=== PATIENT | male | born 1950 | race Caucasian/White ===

== ENCOUNTER → 2018-07-05 08:27 | Outpatient (CLI) | payer MEDICARE, OTHER, SELFPAY | PROVIDERS: PCP Internal Medicine; Visit Provider Internal Medicine | DX: Z53.9 Procedure and treatment not carried out, unspecified reason (principal) ==

== ENCOUNTER → 2018-09-04 15:06 | Outpatient (CLI) | payer MEDICARE, OTHER, SELFPAY ==
--- NOTE | 2018-09-04 15:08 | DI.US.S_ITS ---
PROCEDURE: US PERIPH VENOUS LOW EXTREM RT INDICATIONS: Swelling and bruising right lateral thigh TECHNIQUE: Real-time imaging, as well as color and pulse Doppler interrogation, were performed of the lower extremity deep veins from the inguinal ligament to the popliteal fossa. COMPARISON: None. FINDINGS: The deep veins are normally compressible, and free of intraluminal thrombus. Color and pulse Doppler demonstrate normal phasic intraluminal flow. There is normal augmentation response to distal compression maneuver. IMPRESSION: Negative for deep venous thrombosis. Dictated by: Surya Arroyo M.D. on 09/04/2018 at 15:25 Approved by: Surya Arroyo M.D. on 09/04/2018 at 15:26
== END ==
PROVIDERS: PCP Internal Medicine; Visit Provider Physician Assistant
DX: S70.11XA Contusion of right thigh, initial encounter (principal); M79.89 Other specified soft tissue disorders
CPT/HCPCS: 93971

== ENCOUNTER → 2018-09-09 16:12 | Outpatient (CLI) | payer MEDICARE, OTHER, SELFPAY ==
[2018-09-09 16:38] LABS: Add Manual Diff / Slide Review NO; Basophils Percent Auto 0.3 % (0-2); Eosinophils Percent Auto 1.5 % (2-4); Hematocrit 41.2 % (41-53); Hemoglobin 13.8 g/dL (13.5-17.5); Mean Corpuscular HGB Conc 33.4 % (30-36); Mean Corpuscular Hemoglobin 30.1 PG (26-34); Mean Corpuscular Volume 90.1 fL (80-100); Monocytes Percent Auto 6.9 % (3-14); Neutrophils Absolute Auto 6100 /uL (3000-5900); Neutrophils Percent Auto 68.3 % (50-75); Platelet Count 196 X10^3/uL (150-400); Red Blood Cell Count 4.58 X10^6/uL (4.5-5.9); White Blood Cell Count 8.9 X10^3/uL (4.5-11.0)
[2018-09-09 16:49] LABS: Hemoglobin A1C% w Est Avg Glu 7.1 % (4.0-6.0)
[2018-09-09 17:07] LABS: Alanine Aminotransferase 48 IU/L (21-72); Albumin 4.5 g/dL (3.5-5.0); Albumin Globulin Ratio 1.7 (1.0-2.8); Alkaline Phosphatase 107 U/L (38-126); Aspartate Aminotransferase 41 IU/L (17-59); BUN Creatinine Ratio 18.5 (6-22); Blood Urea Nitrogen 24 mg/dL (9-20); Calcium 9.6 mg/dL (8.4-10.2); Carbon Dioxide 24 mmol/L (22-32); Chloride 103 mmol/L (98-107); Estimated Glomerular Filt Rate 55.2 mL/min (>60); Globulin 2.6 g/dL (1.7-4.1); Glucose 173 mg/dL (80-110); HEMOLYSIS < 15 (0-50); Potassium 4.6 mmol/L (3.4-5.1); Sodium 143 mmol/L (137-145); Total Protein 7.1 g/dL (6.3-8.2)
== END ==
PROVIDERS: PCP Internal Medicine; Visit Provider Internal Medicine
DX: E11.65 Type 2 diabetes mellitus with hyperglycemia (principal); E78.2 Mixed hyperlipidemia; Z79.01 Long term (current) use of anticoagulants; Z95.2 Presence of prosthetic heart valve
CPT/HCPCS: 36415; 80053; 83036; 85025

== ENCOUNTER 2018-10-29 16:08 | Emergency (ER) | payer MEDICARE, OTHER, SELFPAY ==
--- NOTE | 2018-10-29 16:11 | ED_ITS ---
HPI - Male Genitourinary <JADEN Montes - Last Filed: 10/29/18 21:27> General Chief complaint: Urogenital-Male Stated complaint: DIFFICULTY URINATING Time Seen by Provider: 10/29/18 16:08 Source: patient Mode of arrival: ambulatory Limitations: no limitations History of Present Illness HPI Narrative: 68-year-old male with history of coronary artery disease and type 2 diabetes the is a former smoker here for complaint of having increased urinary frequency that started last night. He also has a sensation that he is having difficulty in urination. He denies any flank pain. No fevers or chills. No suprapubic pain. He denies any hematuria no nausea vomiting. Positive p.o. intake he states he is tolerating fluids. He denies any abdominal pain. No rectal pain. No other concerns or complaints at this timeframe. Related Data Home Medications Medication Instructions Recorded Confirmed aspirin 81 mg PO QDAY #0 08/23/09 09/09/18 CA PANTOTHENATE/FOLIC ACID/VIT 1 tab PO QDAY #0 03/20/13 09/09/18 (MULTIVITAMIN) [osteo bi flex] #0 11/23/16 09/09/18 Previous Rx's Medication Instructions Recorded oxybutynin chloride 5 mg PO QDAY #90 tab 12/10/17 warfarin 2.5 mg tablet 2.5 mg PO SEE INSTRUCTIONS #180 tab 05/07/18 atorvastatin 80 mg tablet 80 mg PO HS #90 tab 09/09/18 metformin 1,000 mg tablet 1,000 mg PO BIDCC #90 tab 09/09/18 metoprolol succinate ER 50 mg 50 mg PO BID #180 ter 09/09/18 tablet,extended release 24 hr glipizide 10 mg tablet 10 mg PO BID #180 tab 10/02/18 sitagliptin 100 mg tablet 100 mg PO QDAY #90 tab 10/02/18 nitrofurantoin monohyd/m-cryst 100 mg PO BID #13 cap 10/29/18 [Macrobid] Allergies Allergy/AdvReac Type Severity Reaction Status Date / Time Penicillins [PENICILLINS] Allergy Mild REACTION Verified 09/09/18 15:46 WHEN HE WAS A CHILD furosemide [From LASIX] Allergy Unknown Verified 09/09/18 15:46 Review of Systems <JADEN Montes - Last Filed: 10/29/18 21:27> Constitutional Denies chills, Denies fever(s), Denies lethargy and Denies weakness Eyes Denies change in vision, Denies eye discharge, Denies irritation and Denies loss of vision ENT Ears, Nose, Mouth, and Throat: Denies change in voice, Denies neck pain and Denies sore throat Cardiovascular Denies chest pain, Denies irregular heart rhythm, Denies lightheadedness, Denies palpitations, Denies dyspnea, Denies dyspnea on exertion and Denies orthopnea Respiratory Denies cough, Denies dyspnea, Denies dyspnea on exertion and Denies wheezing Gastrointestinal Gastrointestinal: Denies abdominal pain, Denies change in bowel habits, Denies diarrhea, Denies nausea and Denies vomiting Genitourinary Comments: Increased urinary frequency and sensation of difficulty urinating Musculoskeletal Denies neck pain Integumentary/Breasts Denies pruritus, Denies erythema, Denies rash and Denies wounds Neurologic Denies confusion, Denies loss of vision and Denies weakness Psychiatric Denies anxiety, Denies confusion, Denies depression, Denies homicidal ideation and Denies suicidal ideation Endocrine Denies palpitations Hematologic/Lymphatic Denies easy bruising Allergic/Immunologic Denies wheezing Exam <John Joshua [facility] - Last Filed: 10/29/18 21:27> Initial Vital Signs Initial Vital Signs: Vital Signs Temperature 97.8 F 10/29/18 16:14 Pulse Rate 78 10/29/18 16:14 Respiratory Rate 16 10/29/18 16:14 Blood Pressure 169/96 H 10/29/18 16:14 Pulse Oximetry 99 10/29/18 16:14 Const General: cooperative and well developed Nutritional Appearance: well nourished Orientation: alert, awake, oriented x3 and not confused [facility] Mouth: oral mucosae normal and moist mucous membranes Eyes Conjunctivae: conjunctivae normal Sclera: sclerae normal Pupils: PERRL EOM: EOM intact bilaterally Resp Effort & Inspection: normal respiratory effort, able to speak in complete sentences, no respiratory distress and no use of accessory muscles Auscultation: clear to auscultation bilaterally, no rales, no rhonchi and no wheezes Cardio Rate: regular rate Rhythm: regular rhythm Heart Sounds: no click, no gallops, no murmurs and no rubs GI Inspection: non-distended Palpation: soft, no hepatosplenomegaly, No guarding, No pulsatile mass and No tender Auscultation: normal bowel sounds General: No CVA tenderness Skin General: no rashes or lesions noted, No jaundice and No petechiae Neuro General: alert, oriented x3, gait normal and no focal motor deficits Speech: speech normal <Melany Churchill DO - Last Filed: 11/01/18 19:49> Initial Vital Signs Initial Vital Signs: Vital Signs Temperature 97.8 F 10/29/18 16:14 Pulse Rate 78 10/29/18 16:14 Respiratory Rate 16 10/29/18 16:14 Blood Pressure 169/96 H 10/29/18 16:14 Pulse Oximetry 99 10/29/18 16:14 Course <JADEN Montes - Last Filed: 10/29/18 21:27> Orders Ordered: Discontinued Medications Nitrofurantoin Macrocrystals (Macrobid 100 Mg Capsule) 100 mg PO NOW ONE Stop: 10/29/18 17:01 Last Admin: 10/29/18 17:10 Dose: 100 mg Vital Signs - 8 hr 10/29/18 16:14 Temperature 97.8 F Pulse Rate 78 Respiratory Rate 16 Blood Pressure 169/96 H Pulse Oximetry 99 <Melany Churchill DO - Last Filed: 11/01/18 19:49> Orders Ordered: Discontinued Medications Nitrofurantoin Macrocrystals (Macrobid 100 Mg Capsule) 100 mg PO NOW ONE Stop: 10/29/18 17:01 Last Admin: 10/29/18 17:10 Dose: 100 mg Vital Signs - 8 hr 10/29/18 16:14 Temperature 97.8 F Pulse Rate 78 Respiratory Rate 16 Blood Pressure 169/96 H Pulse Oximetry 99 MDM - Male Genitourinary <JADEN Montes - Last Filed: 10/29/18 21:27> Lab Data Lab Results 10/29/18 Range/Units 16:25 Urine RBC >100/hpf (0-5/HPF) Urine WBC >100/hpf H (0-5/HPF) Ur Squamous Epith Cells 1-5 /hpf Urine Bacteria Many (>30) H (None) Ur Culture Indicated? Specimen cultured MDM Narrative Medical decision making narrative: Bladder scan indicated 15 mL of urine in the bladder. Urinalysis indicates urinary tract infection. He is treated for urinary tract infection with Macrobid. Culture and sensitivity is pending. Plenty of fluids. Follow up with primary care provider next few days for re- evaluation. For any worsening symptoms return to the emergency room. <Melany C Kerline, DO - Last Filed: 11/01/18 19:49> Lab Data Lab Results 10/29/18 Range/Units 16:25 Urine RBC >100/hpf (0-5/HPF) Urine WBC >100/hpf H (0-5/HPF) Ur Squamous Epith Cells 1-5 /hpf Urine Bacteria Many (>30) H (None) Ur Culture Indicated? Specimen cultured Discharge Plan Departure Patient Disposition: Home Clinical Impression: Urinary tract infection Discharge Date/Time: 10/29/18 17:05 Interventions: ED Discharge Assessment Last Done: 10/29/18 17:18 Instructions: DI for Urinary Tract Infection (UTI) Activity Restrictions/Additional Instructions: Bladder scan shows 15 mL inside her urine indicating that you are not retaining urine. Urinalysis indicates urinary tract infection. You have been placed on antibiotic for treatment use as directed. Plenty of fluids. Follow up with her primary care provider in the next few days for re-evaluation. For any worsening symptoms return to the emergency room. Prescriptions: New nitrofurantoin monohyd/m-cryst [Macrobid] 100 mg capsule 100 mg PO BID Qty: 13 RF: 0 No Action aspirin 81 MG tablet,delayed release (DR/EC) 81 mg PO QDAY Qty: 0 RF: 0 CA PANTOTHENATE/FOLIC ACID/VIT (MULTIVITAMIN) 1 tab PO QDAY Qty: 0 RF: 0 [osteo bi flex] Qty: 0 RF: 0 oxybutynin chloride 5 MG tablet 5 mg PO QDAY Qty: 90 RF: 3 warfarin [Coumadin] 2.5 mg tablet 2.5 mg PO SEE INSTRUCTIONS Qty: 180 RF: 3 glipizide 10 mg tablet 10 mg PO BID Qty: 180 RF: 3 sitagliptin [Januvia] 100 mg tablet 100 mg PO QDAY Qty: 90 RF: 3 metformin 1,000 mg tablet 1,000 mg PO BIDCC Qty: 90 RF: 11 atorvastatin [Lipitor] 80 mg tablet 80 mg PO HS Qty: 90 RF: 3 metoprolol succinate 50 mg tablet extended release 24 hr 50 mg PO BID Qty: 180 RF: 3 Referrals: Rajendra Camargo MD [Primary Care Provider] - <Melany Churchill DO - Last Filed: 11/01/18 19:49> Cosign ED Attending Cosignature Attestation: I was immediately available in the department for consultation. This documentation has been reviewed and I agree with assessment and plan. Supervised by Melany Churchill DO
[2018-10-29 16:14] VITALS: BP 169/96; PULSE 78; RESP 16; TEMP 36.6; O2SAT 99
[2018-10-29 16:47] LABS: Bacteria Urine Many (>30); RBC Urine >100/HPF (0-5/HPF); Squamous Epithelial Cell Urine 1-5 /HPF; WBC Urine >100/HPF (0-5/HPF)
[2018-10-29 16:48] LABS: Culture Indicated Urine Specimen Cultured
[2018-10-29] MEDS: NITROFURANTOIN ER 100 MG CAPSULE PO (17:10)
== END 2018-10-29 17:05 | disposition home or self-care (01) ==
PROVIDERS: Emergency Provider Nurse Practitioner Family; Family Provider Internal Medicine; PCP Internal Medicine
DX: N39.0 Urinary tract infection, site not specified (principal)
CPT/HCPCS: 51798; 81015; 87077; 87086; 87186; 99283

== ENCOUNTER → 2018-11-13 16:34 | Outpatient (CLI) | payer MEDICARE, OTHER, SELFPAY ==
[2018-11-13 20:22] LABS: Urine N gonorrhoeae NOT DETECTED
[2018-11-13 20:34] LABS: Urine Chlamydia NOT DETECTED
== END ==
PROVIDERS: Family Provider Internal Medicine; PCP Internal Medicine; Visit Provider Physician Assistant
DX: R52 Pain, unspecified (principal)
CPT/HCPCS: 87491; 87591

== ENCOUNTER 2018-11-13 16:38 | Emergency (ER) | payer MEDICARE, OTHER, SELFPAY ==
[2018-11-13 16:42] VITALS: BP 164/83; PULSE 68; RESP 20; TEMP 37.3; O2SAT 98
--- NOTE | 2018-11-13 17:02 | DI.US.S_ITS ---
PROCEDURE: US SCROTUM INDICATIONS: swelling TECHNIQUE: Real-time scanning was performed of the scrotum and testicles, with image documentation. Color and pulse Doppler interrogation was performed of both testicles. COMPARISON: [facility], US, US PERIPH VENOUS LOW EXTREM RT, 09/04/2018, 16:06. FINDINGS: Right: Testicle is normal in size at 4.9 x 3.3 x 2.9 cm, and homogenous in echotexture. 2 small punctate calcifications are identified within the right testicular parenchyma. Right epididymis is mildly increased vascularity relative to the left. There is a right hydrocele. The right hydrocele is larger than the left, with both demonstrating low level internal echoes. No varicocele. Overlying scrotal skin is normal in thickness. Left: Testicle is normal in size at 4.0 x 2.7 x 3.1 cm, and homogeneous in echotexture. Epididymis is normal in overall size and morphology. There is a left hydrocele. No varicoceles. Overlying scrotal skin is normal in thickness. Doppler: Color and pulse Doppler demonstrate normal and symmetric vascular flow in both testicles. There is mildly increased vascularity of the right epididymis relative to the left. IMPRESSION: 1. Right greater than left bilateral hydroceles. Low level internal echoes within the hydroceles may represent imaging artifact, versus debris from blood, pus, or protein. 2. Mildly increased vascularity of the right epididymis relative to the left, a nonspecific finding that can be seen with right epididymitis. Preliminary findings were discussed by the blocker hand with the referring provider Dr. Vincent Medina at 1725 hrs. on 11/13/18. Dictated by: Taqueria Mesa M.D. on 11/13/2018 at 18:21 Approved by: Taqueria Mesa M.D. on 11/13/2018 at 18:27
--- NOTE | 2018-11-13 17:36 | ED.MALEGU ---
HPI - Male Genitourinary <JADEN Montes - Last Filed: 11/13/18 21:49> General Chief complaint: Urogenital-Male Stated complaint: abdominal pain; swollen scrotum Time Seen by Provider: 11/13/18 17:05 Source: patient Mode of arrival: ambulatory Limitations: no limitations History of Present Illness HPI Narrative: 68-year-old male with history of type 2 diabetes and is a former smoker here for complaint of pain into his right testicle area with some swelling over the past couple of days. He denies any trauma to the area. He denies any penile discharge. He does report that there is some tenderness to that area. Pain radiates up into his right abdomen. He denies any stressors or relievers of his discomfort. He denies any rectal pain. Positive p.o. intake no nausea vomiting. Last bowel movement was earlier today and was unremarkable. He denies any urinary symptoms. He was recently treated for urinary tract infection a week ago he states his symptoms have resolved. He denies any other concerns or complaints at this timeframe. MD Complaint: testicle pain and testicle swelling Related Data Home Medications Medication Instructions Recorded Confirmed aspirin 81 mg PO QDAY #0 08/23/09 11/13/18 CA PANTOTHENATE/FOLIC ACID/VIT 1 tab PO QDAY #0 03/20/13 11/13/18 (MULTIVITAMIN) [osteo bi flex] #0 11/23/16 11/13/18 atorvastatin [Lipitor] 80 mg PO BEDTIME 11/13/18 11/13/18 oxybutynin chloride 5 mg PO DAILY 11/13/18 11/13/18 sitagliptin [Januvia] 100 mg PO DAILY 11/13/18 11/13/18 Previous Rx's Medication Instructions Recorded warfarin 2.5 mg tablet 2.5 mg PO SEE INSTRUCTIONS #180 tab 05/07/18 metformin 1,000 mg tablet 1,000 mg PO BIDCC #90 tab 09/09/18 metoprolol succinate ER 50 mg 50 mg PO BID #180 ter 09/09/18 tablet,extended release 24 hr glipizide 10 mg tablet 10 mg PO BID #180 tab 10/02/18 nitrofurantoin monohyd/m-cryst 100 mg PO BID #13 cap 10/29/18 [Macrobid] levofloxacin 500 mg PO DAILY #9 tab 11/13/18 Allergies Allergy/AdvReac Type Severity Reaction Status Date / Time Penicillins [PENICILLINS] Allergy Mild REACTION Verified 11/13/18 15:37 WHEN HE WAS A CHILD furosemide [From LASIX] Allergy Unknown Verified 11/13/18 15:37 Review of Systems <JADEN Montes - Last Filed: 11/13/18 21:49> Constitutional Denies chills, Denies fever(s), Denies lethargy and Denies weakness Eyes Denies change in vision, Denies eye discharge, Denies irritation and Denies loss of vision ENT Ears, Nose, Mouth, and Throat: Denies change in voice, Denies neck pain and Denies sore throat Cardiovascular Denies chest pain, Denies irregular heart rhythm, Denies lightheadedness, Denies palpitations, Denies dyspnea, Denies dyspnea on exertion and Denies orthopnea Respiratory Denies cough, Denies dyspnea, Denies dyspnea on exertion and Denies wheezing Gastrointestinal Gastrointestinal: Reports abdominal pain Genitourinary Reports testicular pain Comments: Right testicle pain and swelling Musculoskeletal Denies neck pain Integumentary/Breasts Denies pruritus, Denies erythema, Denies rash and Denies wounds Neurologic Denies confusion, Denies loss of vision and Denies weakness Psychiatric Denies anxiety, Denies confusion, Denies depression, Denies homicidal ideation and Denies suicidal ideation Endocrine Denies palpitations Hematologic/Lymphatic Denies easy bruising Allergic/Immunologic Denies wheezing Exam <JADEN Montes - Last Filed: 11/13/18 21:49> Initial Vital Signs Initial Vital Signs: Vital Signs Temperature 99.2 F 11/13/18 16:42 Pulse Rate 68 11/13/18 16:42 Respiratory Rate 20 11/13/18 16:42 Blood Pressure 164/83 H 11/13/18 16:42 Pulse Oximetry 98 11/13/18 16:42 Const General: cooperative and well developed Nutritional Appearance: well nourished Orientation: alert, awake, oriented x3 and not confused HENWA Mouth: oral mucosae normal and moist mucous membranes Eyes Conjunctivae: conjunctivae normal Sclera: sclerae normal Pupils: PERRL EOM: EOM intact bilaterally Resp Effort & Inspection: normal respiratory effort, able to speak in complete sentences, no respiratory distress and no use of accessory muscles Auscultation: clear to auscultation bilaterally, no rales, no rhonchi and no wheezes Cardio Rate: regular rate Rhythm: regular rhythm Heart Sounds: no click, no gallops, no murmurs and no rubs Pulses: normal peripheral pulses GI Inspection: non-distended Palpation: soft, no hepatosplenomegaly, No guarding, No pulsatile mass and tender Auscultation: normal bowel sounds Other: Tenderness on palpation to the right lower quadrant. Testes: epididymal tenderness, testicular swelling and testicular tenderness Other: Slight swelling appreciated to the right testicular area. Also with tenderness. No inguinal hernias appreciated on exam. Skin General: no rashes or lesions noted, No jaundice and No petechiae Neuro General: alert, oriented x3, gait normal and no focal motor deficits Speech: speech normal <Tamie Zuñiga DO - Last Filed: 11/14/18 01:43> Initial Vital Signs Initial Vital Signs: Vital Signs Temperature 99.2 F 11/13/18 16:42 Pulse Rate 68 11/13/18 16:42 Respiratory Rate 20 11/13/18 16:42 Blood Pressure 164/83 H 11/13/18 16:42 Pulse Oximetry 98 11/13/18 16:42 Course <JADEN Montes - Last Filed: 11/13/18 21:49> Orders Ordered: ED Orders 11/13/18 17:02 US scrotum Stat 11/13/18 17:44 CT abdomen pelvis w con Stat 11/13/18 18:35 Complete Blood Count AUTO DIFF Stat Comprehensive Metabolic Panel Stat Lipase Stat Discontinued Medications Levofloxacin (Levaquin) 500 mg PO NOW ONE Stop: 11/13/18 21:48 Last Admin: 11/13/18 21:58 Dose: 500 mg Vital Signs - 8 hr 11/13/18 18:13 11/13/18 20:22 11/13/18 22:05 Pulse Rate 64 67 65 Respiratory Rate 17 16 15 Blood Pressure 134/70 Blood Pressure [Right Arm] 133/72 136/74 Pulse Oximetry 94 97 98 <Tamie Zuñiga DO - Last Filed: 11/14/18 01:43> Orders Ordered: ED Orders 11/13/18 17:02 US scrotum Stat 11/13/18 17:44 CT abdomen pelvis w con Stat 11/13/18 18:35 Complete Blood Count AUTO DIFF Stat Comprehensive Metabolic Panel Stat Lipase Stat Discontinued Medications Levofloxacin (Levaquin) 500 mg PO NOW ONE Stop: 11/13/18 21:48 Last Admin: 11/13/18 21:58 Dose: 500 mg Vital Signs - 8 hr 11/13/18 18:13 11/13/18 20:22 11/13/18 22:05 Pulse Rate 64 67 65 Respiratory Rate 17 16 15 Blood Pressure 134/70 Blood Pressure [Right Arm] 133/72 136/74 Pulse Oximetry 94 97 98 MDM - Male Genitourinary <JADEN Montes - Last Filed: 11/13/18 21:49> Lab Data Result diagrams: 11/13/18 18:35 11/13/18 18:35 Lab Results 11/13/18 11/13/18 Range/Units 18:35 18:35 WBC 13.6 H (4.5-11.0) X10^3/uL RBC 4.57 (4.5-5.9) X10^6/uL Hgb 13.6 (13.5-17.5) g/dL Hct 40.5 L (41-53) % MCV 88.7 (80-100) fL MCH 29.7 (26-34) PG MCHC 33.5 (30-36) % RDW 13.7 (11.6-14.8) % Plt Count 369 (150-400) X10^3/uL Neut % (Auto) 79.2 H (50-75) % Lymph % (Auto) 14.3 L (25-40) % [place] % (Auto) 5.5 (3-14) % Eos % (Auto) 0.7 L (2-4) % Baso % (Auto) 0.3 (0-2) % Neut # (Auto) 38250 H (5513-0867) /uL Lymph # (Auto) 1900 (0761-4477) /uL [place] # (Auto) 800 (0-900) /uL Eos # (Auto) 100 (0-450) /uL Baso # (Auto) 0 (0-100) /uL Sodium 141 (137-145) mmol/L Potassium 4.2 (3.4-5.1) mmol/L Chloride 104 (98-107) mmol/L Carbon Dioxide 25 (22-32) mmol/L BUN 20 (9-20) mg/dL Creatinine 1.20 (0.66-1.25) mg/dL Estimated GFR > 60.0 (>60) mL/min BUN/Creatinine Ratio 16.7 (6-22) Glucose 95 (80-110) mg/dL Calcium 10.0 (8.4-10.2) mg/dL Total Bilirubin 0.7 (0.2-1.3) mg/dL AST 43 (17-59) IU/L ALT 48 (21-72) IU/L Alkaline Phosphatase 118 (38-126) U/L Total Protein 8.5 H (6.3-8.2) g/dL Albumin 4.5 (3.5-5.0) g/dL Globulin 4.0 (1.7-4.1) g/dL Albumin/Globulin Ratio 1.1 (1.0-2.8) Lipase 150 (23-300) U/L Imaging Data CT scan - abdomen: Radiologist's impression: [address] [place] [id number] Scan Report Signed Patient: Al Butts MR#: [id number] : 1950 Acct:[id number] Age/Sex: 68 / M Date of Service: 11/13/18 Loc: ED Accession Number: [id number] Procedure: CT abdomen pelvis w con Ordering Provider: John Joshua PROCEDURE: CT ABDOMEN PELVIS W CON INDICATIONS: Pain to right lower quadrant radiating into right testicle. Patient states history of open repair of abdominal aortic aneurysm and open heart surgery. TECHNIQUE: After the administration of intravenous contrast, 5 mm thick sections acquired from the diaphragm to the symphysis. 5 mm coronal and sagittal reformats were acquired. For radiation dose reduction, the following was used: automated exposure control, adjustment of mA and/or kV according to patient size. COMPARISON: [facility], US, US SCROTUM, 11/13/2018, 17:17. [facility], CT, KIDNEY/ URETER/BLADDER, 09/13/2015, 10:05. [facility], CT, KIDNEY/ URETER/BLADDER, 09/10/2009, 8:38. [facility], CT, KIDNEY/ URETER/BLADDER, 08/20/2009, 14:44. [facility], CT, KIDNEY/ URETER/BLADDER, 06/24/2008, 11:09. FINDINGS: Image quality: Excellent. ABDOMEN: Lung bases: Lung bases are clear. Heart size is normal. Solid organs: 1.6 cm hypoattenuating lesion in the anterior right hepatic lobe on axial image 29 of series 2 is stable in appearance to comparison exam of 09/13/15, and may represent hepatic cyst, hemangioma, or area of focal fatty infiltration. Gallbladder is unremarkable. Biliary system is non dilated. Pancreas enhances normally. There is a 0.5 cm hypoattenuated focus within the spleen is stable appearance to prior comparison exam of , and may represent a cyst or hemangioma. Spleen is otherwise normal in size and enhancement. There is a stable 1.0 cm nodule in the lateral limb of the left adrenal gland, currently measuring 1.0 cm in size and previously measuring 1.0 cm on 09/13/15. No hydronephrosis. There are bilateral renal cysts. The left kidney is smaller than the right, demonstrates cortical thinning, and multiple cortical defects suggestive of chronic renal disease/prior renal insult. There is mild bilateral perinephric fat stranding. There is nonobstructing nephrolithiasis with the largest nephrolith measuring 0.4 cm in the superior pole of the left kidney. There is mild hyperemia of the left renal collecting system and ureter. Peritoneum and bowel: Bowel loops demonstrate normal wall thickness and caliber. No free fluid or air. Normal appendix best seen on axial image 61 of series 2. No right lower quadrant inflammatory findings to suggest acute appendicitis. Nodes and vessels: There is aneurysmal dilatation of the suprarenal abdominal aorta which measures 3.7 cm anteroposterior by 3.7 cm medial-lateral at a level of the diaphragmatic hiatus. There is extensive calcified and noncalcified plaque of the abdominal aorta and branch vessels, as well as postsurgical changes from prior repair. There is an enlarged 1.3 x 1.3 cm left periaortic lymph node on axial image 52/series 2. Miscellaneous: There are small fat-containing ventral hernias. PELVIS: Genitourinary: Bladder wall thickness is diffusely thickened. There is diffuse scrotal edema. There are small bilateral hydroceles. There is hyperemia of the right epididymis. Miscellaneous: There is a left indirect inguinal hernia containing a herniated loop of sigmoid colon, without overt evidence of colonic obstruction or incarceration. Bones: No acute osseous abnormality. Mild multilevel degenerative changes of the spine. There is a sclerotic circumscribed focus measuring 1.0 cm in the L4 vertebral body. IMPRESSION: 1. Hyperemia of the right epididymis concerning for right epididymitis, with small bilateral hydroceles and diffuse scrotal edema. 2. Stable 1.0 cm left adrenal nodule when compared with prior exam of 09/13/15. 3. Diffuse bladder wall thickening and hyperemia of the left renal collecting system/ureter, which may be secondary to bladder outlet obstruction or represent infection/inflammation. There is a 1.3 cm enlarged left periaortic lymph node, possibly reactive. Correlation with urinalysis recommended. 4. Nonobstructing nephrolithiasis. 5. No CT findings consistent with acute appendicitis. 6. Suprarenal abdominal aortic aneurysm measuring up to 3.7 cm in greatest diameter. 7. Left indirect inguinal hernia containing a herniated loop of sigmoid colon, without overt evidence of colonic obstruction. Dictated by: Taqueria Mesa M.D. on 11/13/2018 at 20:30 Approved by: Taqueria Mesa M.D. on 11/13/2018 at 20:49 Testicular ultrasound : Radiologist's impression: [address] [address] Ultrasound Report Signed Patient: Al Butts MR#: [id number] : 1950 Acct:[id number] Age/Sex: 68 / M Date of Service: 11/13/18 Loc: Accession Number: [id number] Procedure: US scrotum Ordering Provider: John Joshua PROCEDURE: US SCROTUM INDICATIONS: swelling TECHNIQUE: Real-time scanning was performed of the scrotum and testicles, with image documentation. Color and pulse Doppler interrogation was performed of both testicles. COMPARISON: [facility], US PERIPH VENOUS LOW EXTREM RT, 09/04/2018, 16:06. FINDINGS: Right: Testicle is normal in size at 4.9 x 3.3 x 2.9 cm, and homogenous in echotexture. 2 small punctate calcifications are identified within the right testicular parenchyma. Right epididymis is mildly increased vascularity relative to the left. There is a right hydrocele. The right hydrocele is larger than the left, with both demonstrating low level internal echoes. No varicocele. Overlying scrotal skin is normal in thickness. Left: Testicle is normal in size at 4.0 x 2.7 x 3.1 cm, and homogeneous in echotexture. Epididymis is normal in overall size and morphology. There is a left hydrocele. No varicoceles. Overlying scrotal skin is normal in thickness. Doppler: Color and pulse Doppler demonstrate normal and symmetric vascular flow in both testicles. There is mildly increased vascularity of the right epididymis relative to the left. IMPRESSION: 1. Right greater than left bilateral hydroceles. Low level internal echoes within the hydroceles may represent imaging artifact, versus debris from blood, pus, or protein. 2. Mildly increased vascularity of the right epididymis relative to the left, a nonspecific finding that can be seen with right epididymitis. Preliminary findings were discussed by the developmental behavioral physician with the referring provider Dr. Vincent Medina at 1725 hrs. on 11/13/18. Dictated by: Taqueria Mesa M.D. on 11/13/2018 at 18:21 Approved by: Taqueria Mesa M.D. on 11/13/2018 at 18:27 MDM Narrative Medical decision making narrative: Testicular ultrasound was obtained was negative for torsion. Signs are consistent with hydrocele and also epididymitis. Due to pain to the abdomen CT abdomen was obtained and shows also findings of a right epididymitis with small bilateral hydroceles and scrotal edema. CT also showed a adrenal nodule that is stable with prior exam in 2014. It does show that there is some bladder wall thickening and also a lymph node to the area this is most likely secondary to his recent urinary tract infection. Left kidney shows a nonobstructive kidney stone.. There is a a super renal abdominal aortic aneurysm at 3.[address] also shows a indirect left inguinal hernia of the sigmoid colon without any signs of obstruction or herniation. He is treated for epididymitis with Levaquin. Follow up with primary care provider for supervision of a current condition along with the aneurysm and inguinal hernia. [id number] ibuprofen as needed for any discomfort. For any worsening symptoms return to the emergency room. <Tamie Zuñiga, DO - Last Filed: 11/14/18 01:43> Lab Data Lab Results 11/13/18 11/13/18 Range/Units 18:35 18:35 WBC 13.6 H (4.5-11.0) X10^3/uL RBC 4.57 (4.5-5.9) X10^6/uL Hgb 13.6 (13.5-17.5) g/dL Hct 40.5 L (41-53) % MCV 88.7 (80-100) fL MCH 29.7 (26-34) PG MCHC 33.5 (30-36) % RDW 13.7 (11.6-14.8) % Plt Count 369 (150-400) X10^3/uL Neut % (Auto) 79.2 H (50-75) % Lymph % (Auto) 14.3 L (25-40) % [place] % (Auto) 5.5 (3-14) % Eos % (Auto) 0.7 L (2-4) % Baso % (Auto) 0.3 (0-2) % Neut # (Auto) 55920 H (3546-3971) /uL Lymph # (Auto) 1900 (4976-7127) /uL [place] # (Auto) 800 (0-900) /uL Eos # (Auto) 100 (0-450) /uL Baso # (Auto) 0 (0-100) /uL Sodium 141 (137-145) mmol/L Potassium 4.2 (3.4-5.1) mmol/L Chloride 104 (98-107) mmol/L Carbon Dioxide 25 (22-32) mmol/L BUN 20 (9-20) mg/dL Creatinine 1.20 (0.66-1.25) mg/dL Estimated GFR > 60.0 (>60) mL/min BUN/Creatinine Ratio 16.7 (6-22) Glucose 95 (80-110) mg/dL Calcium 10.0 (8.4-10.2) mg/dL Total Bilirubin 0.7 (0.2-1.3) mg/dL AST 43 (17-59) IU/L ALT 48 (21-72) IU/L Alkaline Phosphatase 118 (38-126) U/L Total Protein 8.5 H (6.3-8.2) g/dL Albumin 4.5 (3.5-5.0) g/dL Globulin 4.0 (1.7-4.1) g/dL Albumin/Globulin Ratio 1.1 (1.0-2.8) Lipase 150 (23-300) U/L Discharge Plan Departure Patient Disposition: Home Clinical Impression: Acute epididymitis Discharge Date/Time: 11/13/18 22:06 Interventions: ED Discharge Assessment Last Done: 11/13/18 22:05 Instructions: DI for Epididymitis Activity Restrictions/Additional Instructions: Ultrasound and CT show findings consistent with epididymitis which is infection to the epididymis of the right testicle. You were treated with an antibiotic called Levaquin use as directed. CT of the abdomen also shows that there is a 3.7 cm aortic aneurysm recommend following upper eye care provider for for supervision of this. There is also an inguinal hernia to the left inguinal area of the sigmoid colon that does not appear to be obstructed or incarcerated at this time. If any worsening symptoms return to the emergency room. Use [id number] ibuprofen as needed for any discomfort. Follow up with primary care provider later this week or beginning of next for re-evaluation. Prescriptions: New levofloxacin 500 mg tablet 500 mg PO DAILY Qty: 9 RF: 0 No Action aspirin 81 MG tablet,delayed release (DR/EC) 81 mg PO QDAY Qty: 0 RF: 0 CA PANTOTHENATE/FOLIC ACID/VIT (MULTIVITAMIN) 1 tab PO QDAY Qty: 0 RF: 0 [osteo bi flex] Qty: 0 RF: 0 warfarin [Coumadin] 2.5 mg tablet 2.5 mg PO SEE INSTRUCTIONS Qty: 180 RF: 3 glipizide 10 mg tablet 10 mg PO BID Qty: 180 RF: 3 metformin 1,000 mg tablet 1,000 mg PO BIDCC Qty: 90 RF: 11 metoprolol succinate 50 mg tablet extended release 24 hr 50 mg PO BID Qty: 180 RF: 3 sitagliptin [Januvia] 100 mg tablet 100 mg PO DAILY RF: 0 atorvastatin [Lipitor] 80 mg tablet 80 mg PO BEDTIME RF: 0 oxybutynin chloride 5 MG tablet 5 mg PO DAILY RF: 0 nitrofurantoin monohyd/m-cryst [Macrobid] 100 mg capsule 100 mg PO BID Qty: 13 RF: 0 Referrals: Rajendra Camargo MD [Primary Care Provider] - <Tamie Zuñiga DO - Last Filed: 11/14/18 01:43> Cosign ED Attending Jewelature Attestation: I was immediately available in the department for consultation. Documentation has been reviewed. I agree with assessment and plan.
--- NOTE | 2018-11-13 17:44 | DI.CT.S_ITS ---
PROCEDURE: CT ABDOMEN PELVIS W CON INDICATIONS: Pain to right lower quadrant radiating into right testicle. Patient states history of open repair of abdominal aortic aneurysm and open heart surgery. TECHNIQUE: After the administration of intravenous contrast, 5 mm thick sections acquired from the diaphragm to the symphysis. 5 mm coronal and sagittal reformats were acquired. For radiation dose reduction, the following was used: automated exposure control, adjustment of mA and/or kV according to patient size. COMPARISON: [facility], US, US SCROTUM, 11/13/2018, 17:17. [facility], CT, KIDNEY/ URETER/BLADDER, 09/13/2015, 10:05. [facility], CT, KIDNEY/ URETER/BLADDER, 09/10/2009, 8:38. [facility], CT, KIDNEY/ URETER/BLADDER, 08/20/2009, 14:44. [facility], CT, KIDNEY/ URETER/BLADDER, 06/24/2008, 11:09. FINDINGS: Image quality: Excellent. ABDOMEN: Lung bases: Lung bases are clear. Heart size is normal. Solid organs: 1.6 cm hypoattenuating lesion in the anterior right hepatic lobe on axial image 29 of series 2 is stable in appearance to comparison exam of 09/13/15, and may represent hepatic cyst, hemangioma, or area of focal fatty infiltration. Gallbladder is unremarkable. Biliary system is non dilated. Pancreas enhances normally. There is a 0.5 cm hypoattenuated focus within the spleen is stable appearance to prior comparison exam of , and may represent a cyst or hemangioma. Spleen is otherwise normal in size and enhancement. There is a stable 1.0 cm nodule in the lateral limb of the left adrenal gland, currently measuring 1.0 cm in size and previously measuring 1.0 cm on 09/13/15. No hydronephrosis. There are bilateral renal cysts. The left kidney is smaller than the right, demonstrates cortical thinning, and multiple cortical defects suggestive of chronic renal disease/prior renal insult. There is mild bilateral perinephric fat stranding. There is nonobstructing nephrolithiasis with the largest nephrolith measuring 0.4 cm in the superior pole of the left kidney. There is mild hyperemia of the left renal collecting system and ureter. Peritoneum and bowel: Bowel loops demonstrate normal wall thickness and caliber. No free fluid or air. Normal appendix best seen on axial image 61 of series 2. No right lower quadrant inflammatory findings to suggest acute appendicitis. Nodes and vessels: There is aneurysmal dilatation of the suprarenal abdominal aorta which measures 3.7 cm anteroposterior by 3.7 cm medial-lateral at a level of the diaphragmatic hiatus. There is extensive calcified and noncalcified plaque of the abdominal aorta and branch vessels, as well as postsurgical changes from prior repair. There is an enlarged 1.3 x 1.3 cm left periaortic lymph node on axial image 52/series 2. Miscellaneous: There are small fat-containing ventral hernias. PELVIS: Genitourinary: Bladder wall thickness is diffusely thickened. There is diffuse scrotal edema. There are small bilateral hydroceles. There is hyperemia of the right epididymis. Miscellaneous: There is a left indirect inguinal hernia containing a herniated loop of sigmoid colon, without overt evidence of colonic obstruction or incarceration. Bones: No acute osseous abnormality. Mild multilevel degenerative changes of the spine. There is a sclerotic circumscribed focus measuring 1.0 cm in the L4 vertebral body. IMPRESSION: 1. Hyperemia of the right epididymis concerning for right epididymitis, with small bilateral hydroceles and diffuse scrotal edema. 2. Stable 1.0 cm left adrenal nodule when compared with prior exam of 09/13/15. 3. Diffuse bladder wall thickening and hyperemia of the left renal collecting system/ureter, which may be secondary to bladder outlet obstruction or represent infection/inflammation. There is a 1.3 cm enlarged left periaortic lymph node, possibly reactive. Correlation with urinalysis recommended. 4. Nonobstructing nephrolithiasis. 5. No CT findings consistent with acute appendicitis. 6. Suprarenal abdominal aortic aneurysm measuring up to 3.7 cm in greatest diameter. 7. Left indirect inguinal hernia containing a herniated loop of sigmoid colon, without overt evidence of colonic obstruction. Dictated by: Taqueria Mesa M.D. on 11/13/2018 at 20:30 Approved by: Taqueria Mesa M.D. on 11/13/2018 at 20:49
[2018-11-13 18:13] VITALS: BP 133/72; PULSE 64; RESP 17; O2SAT 94
[2018-11-13 18:49] LABS: Add Manual Diff / Slide Review NO; Basophils Absolute Auto 0 /uL (0-100); Basophils Percent Auto 0.3 % (0-2); Eosinophils Absolute Auto 100 /uL (0-450); Eosinophils Percent Auto 0.7 % (2-4); Hematocrit 40.5 % (41-53); Hemoglobin 13.6 g/dL (13.5-17.5); Lymphocytes Absolute Auto 1900 /uL (1100-4500); Lymphocytes Percent Auto 14.3 % (25-40); Mean Corpuscular HGB Conc 33.5 % (30-36); Mean Corpuscular Hemoglobin 29.7 PG (26-34); Mean Corpuscular Volume 88.7 fL (80-100); Monocytes Absolute Auto 800 /uL (0-900); Monocytes Percent Auto 5.5 % (3-14); Neutrophils Absolute Auto 10800 /uL (1500-7000); Neutrophils Percent Auto 79.2 % (50-75); Platelet Count 369 X10^3/uL (150-400); Red Blood Cell Count 4.57 X10^6/uL (4.5-5.9); Red Cell Distribution Width 13.7 % (11.6-14.8); White Blood Cell Count 13.6 X10^3/uL (4.5-11.0)
[2018-11-13 19:36] LABS: Alanine Aminotransferase 48 IU/L (21-72); Albumin 4.5 g/dL (3.5-5.0); Albumin Globulin Ratio 1.1 (1.0-2.8); Alkaline Phosphatase 118 U/L (38-126); Aspartate Aminotransferase 43 IU/L (17-59); BUN Creatinine Ratio 16.7 (6-22); Bilirubin Total 0.7 mg/dL (0.2-1.3); Blood Urea Nitrogen 20 mg/dL (9-20); Carbon Dioxide 25 mmol/L (22-32); Chloride 104 mmol/L (98-107); Estimated Glomerular Filt Rate > 60.0 mL/min (>60); Glucose 95 mg/dL (80-110); Lipase 150 U/L (23-300); Potassium 4.2 mmol/L (3.4-5.1); Sodium 141 mmol/L (137-145); Total Protein 8.5 g/dL (6.3-8.2)
[2018-11-13 19:38] LABS: HEMOLYSIS < 15 (0-50)
[2018-11-13 20:22] VITALS: BP 136/74; PULSE 67; RESP 16; O2SAT 97
[2018-11-13] MEDS: levoFLOXacin 250 MG TABLET 500 MG PO (21:58)
[2018-11-13 22:05] VITALS: BP 134/70; PULSE 65; RESP 15; O2SAT 98
== END 2018-11-13 22:06 | disposition home or self-care (01) ==
PROVIDERS: Emergency Provider Nurse Practitioner Family; PCP Internal Medicine
DX: N45.1 Epididymitis (principal)
CPT/HCPCS: 36591; 74177; 76870; 80053; 83690; 85025; 87491; 87591; 99282; 99284; Q9967

== ENCOUNTER → 2020-01-06 12:00 | Outpatient (CLI) | payer MEDICARE, OTHER, SELFPAY ==
[2020-01-06 12:54] LABS: Add Manual Diff / Slide Review NO; Basophils Absolute Auto 0 /uL (0-100); Basophils Percent Auto 0.6 % (0-2); Eosinophils Absolute Auto 200 /uL (0-450); Eosinophils Percent Auto 2.6 % (2-4); Hematocrit 39.3 % (41-53); Hemoglobin 13.1 g/dL (13.5-17.5); Lymphocytes Absolute Auto 1700 /uL (1100-4500); Mean Corpuscular HGB Conc 33.2 % (30-36); Mean Corpuscular Hemoglobin 30.2 PG (26-34); Mean Corpuscular Volume 90.8 fL (80-100); Monocytes Absolute Auto 700 /uL (0-900); Monocytes Percent Auto 9.5 % (3-14); Neutrophils Absolute Auto 4300 /uL (1500-7000); Neutrophils Percent Auto 62.3 % (50-75); Platelet Count 182 X10^3/uL (150-400); Red Blood Cell Count 4.33 X10^6/uL (4.5-5.9); Red Cell Distribution Width 14.4 % (11.6-14.8); White Blood Cell Count 6.9 X10^3/uL (4.5-11.0)
[2020-01-06 12:55] LABS: Hemoglobin A1C% w Est Avg Glu 7.4 % (4.0-6.0)
[2020-01-06 13:03] LABS: Alanine Aminotransferase 32 IU/L (<50); Albumin 4.4 g/dL (3.5-5.0); Albumin Globulin Ratio 1.3 (1.0-2.8); Alkaline Phosphatase 115 U/L (38-126); Aspartate Aminotransferase 40 IU/L (17-59); BUN Creatinine Ratio 14.4 (6-22); Bilirubin Total 0.7 mg/dL (0.2-1.3); Blood Urea Nitrogen 16 mg/dL (9-20); Calcium 9.6 mg/dL (8.4-10.2); Carbon Dioxide 25 mmol/L (22-32); Chloride 107 mmol/L (98-107); Estimated Glomerular Filt Rate > 60.0 mL/min (>60); Globulin 3.3 g/dL (1.7-4.1); Glucose 180 mg/dL (80-110); HEMOLYSIS < 15 (0-50); Potassium 4.7 mmol/L (3.4-5.1); Sodium 141 mmol/L (137-145); Total Protein 7.7 g/dL (6.3-8.2)
[2020-01-06 13:34] LABS: Prostate Specific Antigen Scrn 4.23 ng/mL (0.1-4.0)
== END ==
PROVIDERS: PCP Internal Medicine; Referring Provider Internal Medicine; Visit Provider Internal Medicine
DX: Z12.5 Encounter for screening for malignant neoplasm of prostate (principal); E11.9 Type 2 diabetes mellitus without complications; E78.2 Mixed hyperlipidemia; Z13.6 Encounter for screening for cardiovascular disorders; Z79.01 Long term (current) use of anticoagulants; Z95.2 Presence of prosthetic heart valve
CPT/HCPCS: 36415; 80053; 83036; 85025; G0103

== ENCOUNTER → 2020-01-09 12:19 | Outpatient (CLI) | payer MEDICARE, OTHER, SELFPAY ==
--- NOTE | 2020-01-09 14:09 | DI.RAD.S_ITS ---
PROCEDURE: XR ABDOMEN 1V INDICATIONS: kidney stone/hematuria TECHNIQUE: One view of the abdomen acquired. COMPARISON: [facility], CT, CT ABDOMEN PELVIS W CON, 11/13/2018, 19:41. [facility], CR, ABDOMEN 2 VIEW, 08/27/2009, 5:20. FINDINGS: Surgical changes and devices: None. Bowel: Bowel gas pattern is normal. Soft tissues: 1-2 mm calculi projecting in the left abdomen at the level of L4-L5 Bones: No suspicious bony lesions. Lower lumbar spondylosis and bilateral mild hip joint degeneration. IMPRESSION: Left abdominal calcifications,, possibly mid ureteral calculi although this could be confirmed with CT KUB as clinically necessary Dictated by: Diogenes Otto M.D. on 01/09/2020 at 16:29 Approved by: Diogenes Otto M.D. on 01/09/2020 at 16:33
[2020-01-10 08:09] LABS: PSA Free % 27.2 % (.); PSA, Total 4.7 ng/mL (0.0-4.0)
== END ==
PROVIDERS: PCP Internal Medicine; Referring Provider Internal Medicine; Visit Provider Internal Medicine
DX: R97.20 Elevated prostate specific antigen [PSA] (principal); R31.9 Hematuria, unspecified; N20.0 Calculus of kidney
CPT/HCPCS: 36415; 74018; 84153; 84154; 87086

== ENCOUNTER → 2020-01-26 13:21 | Outpatient (CLI) | payer MEDICARE, OTHER, SELFPAY ==
--- NOTE | 2020-01-26 13:24 | DI.CT.S_ITS ---
PROCEDURE: CT ABDOMEN PELVIS WO/W CON INDICATIONS: Having hematuria, looking for kidney stone TECHNIQUE: Optional 5 mm thick noncontrast images acquired from the diaphragm to the symphysis pubis. After the administration of intravenous contrast, 5 mm thick images acquired from the diaphragm to the symphysis pubis after a 10-minute delay. 2 mm thick coronal and sagittal reformats were then performed of the kidneys and ureters. For radiation dose reduction, the following was used: automated exposure control, adjustment of mA and/or kV according to patient size. COMPARISON: None. FINDINGS: Image quality: Excellent. Lung bases: Lung bases are clear. Heart size is normal. Urinary system: Both kidneys are normal in size, without hydronephrosis bilaterally but there is punctate nephrolithiasis at the upper third collecting system of the left kidney, comprised of a single 1.5 mm calculus. on pre-contrast images. No perinephric fat stranding. There is normal bilateral renal enhancement. Renal calyces appear normal in morphology when filled with contrast. Opacified portions of both ureters demonstrate normal caliber. Bladder wall thickness is normal. No calcified bladder stones. Other solid organs: Liver is normal in size and enhancement. Gallbladder appears normal. Biliary system is non dilated. Pancreas enhances normally. Spleen is normal in size and enhancement. No adrenal nodules. Peritoneum and bowel: Bowel loops demonstrate normal wall thickness and caliber. No free fluid or air. Nodes and vessels: No retroperitoneal or mesenteric adenopathy by size criteria. The inferior vena cava are normal in size but the upper abdominal aorta near the javon of the diaphragm is mildly aneurysmal, measuring up to 3.5 cm AP and 4.0 cm transverse.. Abdominal wall: No ventral hernias. Pelvis: No pathologic free pelvic fluid. No inguinal hernias or adenopathy. Bones: No suspicious bony lesions. No vertebral body compression fractures. IMPRESSION: Single identified 1.5 mm punctate calculus within a nondistended calyx of the upper third collecting system of the left kidney. No urothelial or renal cortical mass lesion is seen. 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 Dictated by: Armand Armstrong M.D. on 01/26/2020 at 16:52 Approved by: Armand Armstrong M.D. on 01/26/2020 at 16:56
== END ==
PROVIDERS: PCP Internal Medicine; Referring Provider Internal Medicine; Visit Provider Internal Medicine
DX: R31.9 Hematuria, unspecified (principal); N20.0 Calculus of kidney; I71.4 Abdominal aortic aneurysm, without rupture
CPT/HCPCS: 74178; Q9967

== ENCOUNTER → 2020-07-20 10:03 | Outpatient (CLI) | payer MEDICARE, OTHER, SELFPAY | PROVIDERS: PCP Internal Medicine; Visit Provider Internal Medicine | DX: N39.0 Urinary tract infection, site not specified (principal); R35.0 Frequency of micturition | CPT/HCPCS: 87077; 87086; 87186 ==

== ENCOUNTER → 2020-08-04 16:46 | Outpatient (CLI) | payer MEDICARE, OTHER, SELFPAY ==
[2020-08-04 16:56] LABS: Bacteria Urine None Seen
[2020-08-04 18:19] LABS: Appearance Urine UA SL CLOUDY; Bilirubin Urine UA NEGATIVE (NEGATIVE); Color Urine UA YELLOW; Glucose Urine UA NEGATIVE (Negative); Ketones Urine UA NEGATIVE (NEGATIVE); Leukocyte Esterase Urine UA NEGATIVE (NEGATIVE); Nitrite Urine UA NEGATIVE (Negative); Occult Blood Urine UA 3+ (Negative); Protein Urine UA TRACE (Negative); Specific Gravity Urine UA 1.015 (1.000-1.035); Urobilinogen Urine UA 0.2 E.U./dL (0.2)
[2020-08-04 18:41] LABS: Culture Indicated Urine Specimen Cultured; RBC Urine >100/HPF (0-5/HPF); Squamous Epithelial Cell Urine 0-1 /HPF (0-5/HPF); WBC Urine 5-10/HPF (0-5/HPF)
== END ==
PROVIDERS: Student in an Organized Health Care Education/Training Program; PCP Internal Medicine; Referring Provider Internal Medicine; Visit Provider Internal Medicine
DX: Z79.01 Long term (current) use of anticoagulants (principal); Z95.2 Presence of prosthetic heart valve; R31.9 Hematuria, unspecified
CPT/HCPCS: 81001; 87086

== ENCOUNTER → 2021-07-15 11:14 | Outpatient (CLI) | payer MEDICARE, OTHER, SELFPAY ==
[2021-07-15 13:02] LABS: INR 4.4 (0.9-1.3); Prothrombin Time 51.4 SECONDS (10.1-12.7)
[2021-07-15 13:03] LABS: Add Manual Diff / Slide Review NO; Basophils Absolute Auto 0 /uL (0-100); Basophils Percent Auto 0.6 % (0-2); Eosinophils Absolute Auto 100 /uL (0-450); Eosinophils Percent Auto 2.2 % (2-4); Hematocrit 39.8 % (41-53); Hemoglobin 13.2 g/dL (13.5-17.5); Lymphocytes Absolute Auto 1600 /uL (1100-4500); Lymphocytes Percent Auto 23.8 % (25-40); Mean Corpuscular HGB Conc 33.1 % (30-36); Mean Corpuscular Hemoglobin 30.1 PG (26-34); Mean Corpuscular Volume 91.1 fL (80-100); Monocytes Absolute Auto 500 /uL (0-900); Monocytes Percent Auto 8.1 % (3-14); Neutrophils Absolute Auto 4300 /uL (1500-7000); Neutrophils Percent Auto 65.3 % (50-75); Platelet Count 186 X10^3/uL (150-400); Red Blood Cell Count 4.36 X10^6/uL (4.5-5.9); Red Cell Distribution Width 14.2 % (11.6-14.8); White Blood Cell Count 6.6 X10^3/uL (4.5-11.0)
[2021-07-15 13:21] LABS: Hemoglobin A1C% w Est Avg Glu 6.9 % (4.0-6.0)
[2021-07-15 13:29] LABS: Alanine Aminotransferase 32 IU/L (<50); Albumin 4.2 g/dL (3.5-5.0); Albumin Globulin Ratio 1.6 (1.0-2.8); Alkaline Phosphatase 96 U/L (38-126); Aspartate Aminotransferase 39 IU/L (17-59); BUN Creatinine Ratio 18.3 (6-22); Bilirubin Total 0.7 mg/dL (0.2-1.3); Blood Urea Nitrogen 20 mg/dL (9-20); Calcium 9.7 mg/dL (8.4-10.2); Carbon Dioxide 29 mmol/L (22-32); Chloride 108 mmol/L (98-107); Estimated Glomerular Filt Rate > 60.0 mL/min (>60); Globulin 2.7 g/dL (1.7-4.1); Glucose 125 mg/dL (80-110); HEMOLYSIS < 15 (0-50); Potassium 4.9 mmol/L (3.4-5.1); Sodium 140 mmol/L (137-145); Total Protein 6.9 g/dL (6.3-8.2)
[2021-07-15 13:54] LABS: TSH w/ Reflex to FT4 1.35 uIU/mL (0.47-4.68)
== END ==
PROVIDERS: Nurse Practitioner; PCP Internal Medicine; Referring Provider Internal Medicine; Visit Provider Internal Medicine
DX: Z79.01 Long term (current) use of anticoagulants (principal); E78.2 Mixed hyperlipidemia; E11.9 Type 2 diabetes mellitus without complications; R31.9 Hematuria, unspecified
CPT/HCPCS: 36415; 80053; 83036; 84443; 85025; 85610

== ENCOUNTER → 2022-10-27 09:34 | Outpatient (CLI) | payer MEDICARE, OTHER, SELFPAY ==
[2022-10-27 10:18] LABS: Add Manual Diff / Slide Review NO; Basophils Absolute Auto 100 /uL (0-100); Basophils Percent Auto 0.8 % (0-2); Eosinophils Absolute Auto 200 /uL (0-450); Eosinophils Percent Auto 3.2 % (2-4); Hematocrit 35.3 % (41-53); Hemoglobin 11.9 g/dL (13.5-17.5); Lymphocytes Absolute Auto 1600 /uL (1100-4500); Lymphocytes Percent Auto 21.2 % (25-40); Mean Corpuscular HGB Conc 33.6 % (30-36); Mean Corpuscular Hemoglobin 29.9 PG (26-34); Monocytes Absolute Auto 600 /uL (0-900); Monocytes Percent Auto 7.7 % (3-14); Neutrophils Absolute Auto 5100 /uL (1500-7000); Neutrophils Percent Auto 67.1 % (50-75); Platelet Count 245 X10^3/uL (150-400); Red Blood Cell Count 3.97 X10^6/uL (4.5-5.9); Red Cell Distribution Width 14.3 % (11.6-14.8); White Blood Cell Count 7.6 X10^3/uL (4.5-11.0)
[2022-10-27 10:29] LABS: Hemoglobin A1C% w Est Avg Glu 7.3 % (4.0-6.0)
[2022-10-27 10:37] LABS: Prothrombin Time 34.5 SECONDS (10.1-12.7)
[2022-10-27 11:22] LABS: Prostate Specific Antigen 5.89 ng/mL (0.10-4.00)
[2022-10-27 11:29] LABS: Alanine Aminotransferase 44 IU/L (<50); Albumin 3.9 g/dL (3.5-5.0); Albumin Globulin Ratio 1.3 (1.0-2.8); Alkaline Phosphatase 102 U/L (38-126); Aspartate Aminotransferase 42 IU/L (17-59); BUN Creatinine Ratio 17.3 (6-22); Bilirubin Total 0.6 mg/dL (0.2-1.3); Blood Urea Nitrogen 19 mg/dL (9-20); Calcium 9.1 mg/dL (8.4-10.2); Carbon Dioxide 25 mmol/L (22-32); Chloride 104 mmol/L (98-107); Cholesterol 141 mg/dL (140-199); Estimated Glomerular Filt Rate > 60 mL/min (>60); Globulin 2.9 g/dL (1.7-4.1); Glucose 221 mg/dL (80-110); HDL Cholesterol 31 mg/dL (40-60); HEMOLYSIS < 15 (0-50); LDL Cholesterol Calculated 72 mg/dL (<100); Potassium 4.4 mmol/L (3.4-5.1); Sodium 138 mmol/L (137-145); Total Protein 6.8 g/dL (6.3-8.2); Triglycerides 189 mg/dL (35-150)
== END ==
PROVIDERS: PCP Internal Medicine; Referring Provider Internal Medicine; Visit Provider Internal Medicine
DX: R97.20 Elevated prostate specific antigen [PSA] (principal); Z79.01 Long term (current) use of anticoagulants; E11.9 Type 2 diabetes mellitus without complications; E78.2 Mixed hyperlipidemia; I10 Essential (primary) hypertension
CPT/HCPCS: 36415; 80053; 80061; 83036; 84153; 85025; 85610

== ENCOUNTER → 2023-05-03 14:04 | Outpatient (CLI) | payer MEDICARE, OTHER, SELFPAY ==
[2023-05-03 15:55] LABS: Add Manual Diff / Slide Review NO; Basophils Absolute Auto 0 /uL (0-100); Basophils Percent Auto 0.4 % (0-2); Eosinophils Absolute Auto 200 /uL (0-450); Eosinophils Percent Auto 2.6 % (2-4); Hematocrit 35.5 % (41-53); Lymphocytes Absolute Auto 1800 /uL (1100-4500); Lymphocytes Percent Auto 21.2 % (25-40); Mean Corpuscular HGB Conc 33.7 % (30-36); Mean Corpuscular Hemoglobin 30.1 PG (26-34); Mean Corpuscular Volume 89.4 fL (80-100); Monocytes Absolute Auto 700 /uL (0-900); Monocytes Percent Auto 8.7 % (3-14); Neutrophils Absolute Auto 5600 /uL (1500-7000); Neutrophils Percent Auto 67.1 % (50-75); Platelet Count 193 X10^3/uL (150-400); Red Blood Cell Count 3.97 X10^6/uL (4.5-5.9); Red Cell Distribution Width 14.1 % (11.6-14.8); White Blood Cell Count 8.3 X10^3/uL (4.5-11.0)
[2023-05-03 16:19] LABS: BUN Creatinine Ratio 14.8 (6-22); Blood Urea Nitrogen 22 mg/dL (9-20); Calcium 9.1 mg/dL (8.4-10.2); Carbon Dioxide 26 mmol/L (22-32); Chloride 104 mmol/L (98-107); Estimated Glomerular Filt Rate 50 mL/min (>60); Glucose 170 mg/dL (80-110); HEMOLYSIS < 15 (0-50); Sodium 137 mmol/L (137-145)
[2023-05-03 17:50] LABS: Creatinine Urine Random 101.6 mg/dL
[2023-05-03 17:54] LABS: Microalbumi Creatinin Ratio Ur 88.5 ug/mg CR (<30)
[2023-05-05 08:39] LABS: x Labcorp Estim. Avg Glu (eAG) 160 mg/dL (.); x Labcorp Hemoglobin A1c 7.2 % (4.8-5.6)
== END ==
PROVIDERS: PCP Internal Medicine; Referring Provider Internal Medicine; Visit Provider Internal Medicine
DX: E11.9 Type 2 diabetes mellitus without complications (principal); I10 Essential (primary) hypertension
CPT/HCPCS: 36415; 80048; 82043; 82570; 83036; 85025

== ENCOUNTER → 2023-12-07 13:13 | Outpatient (CLI) | payer MEDICARE, OTHER, SELFPAY ==
[2023-12-07 14:21] LABS: Alanine Aminotransferase 29 IU/L (<50); Albumin 4.3 g/dL (3.5-5.0); Albumin Globulin Ratio 1.3 (1.0-2.8); Alkaline Phosphatase 92 U/L (38-126); Aspartate Aminotransferase 32 IU/L (17-59); BUN Creatinine Ratio 18.8 (6-22); Blood Urea Nitrogen 22 mg/dL (9-20); Calcium 9.2 mg/dL (8.4-10.2); Carbon Dioxide 21 mmol/L (22-32); Chloride 105 mmol/L (98-107); Estimated Glomerular Filt Rate > 60 mL/min (>60); Globulin 3.3 g/dL (1.7-4.1); Glucose 174 mg/dL (80-110); HEMOLYSIS 30 (0-50); Potassium 4.7 mmol/L (3.4-5.1); Sodium 137 mmol/L (137-145); Total Protein 7.6 g/dL (6.3-8.2)
[2023-12-09 09:40] LABS: x Labcorp Estim. Avg Glu (eAG) 166 mg/dL (.); x Labcorp Hemoglobin A1c 7.4 % (4.8-5.6)
== END ==
PROVIDERS: PCP Internal Medicine; Referring Provider Internal Medicine; Visit Provider Internal Medicine
DX: I10 Essential (primary) hypertension (principal); E11.9 Type 2 diabetes mellitus without complications
CPT/HCPCS: 36415; 80053; 83036

== ENCOUNTER → 2024-01-18 07:44 | Outpatient (CLI) | payer MEDICARE, OTHER, SELFPAY ==
--- NOTE | 2024-01-18 07:45 | DI.ECHO.S_ITS ---
[facility] +---------+ Hospital +---------+ : : [address] : : : : [place] : : : : [id number] : : : : Phone: [phone]+ Echocardiogram Report + + :Name: TRUDI MORALES Study Date: 01/18/2024 Height: 72 in : :[facility] ReadingLocation: Weight: 204 lb : : Gender: Male BSA: 2.1 m2 : :: 1950 Age: 73 yrs BP: 142/71 mmHg: :Reason For Study: PRESENCE OF PROSTHETIC HEART VALVE : :Ordering Physician: ELIZABET, : :LV Wan Performed By: Dave Garcia : :Referring: LV MCNEAL : + + Interpretation Summary Normal sinus rhythm with frequent PVC's in a pattern of bigeminy. Normal LV size and wall thickness. There are focal wall motion abnormalities involvind mid-inferior, mid-inferolateral, basal inferolateral, apical inferior and apical lateral segments. 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 Aortic valve is replaced by history via mechanical prosthesis namely [address]Carlos aortic valve in 2006. It is functioning normally. Moderate MR and TR. Mildly dilated ascending aorta measuring 4.2 cm in diameter. Mildly elevated PA systolic presure estimatd at 51 mm Hg assuming RA pressure of 8 mm Hg. No prior study available for comparison. Procedure: A two-dimensional transthoracic echocardiogram with color flow and Doppler was performed. The study quality was technically adequate. The patient had an echocardiogram, but there is no comparison study available. BIGEMINY WITH HR 69-110. Left Ventricle: The left ventricle is normal in size. Left ventricular wall thickness is borderline increased. The ejection fraction is estimated to be 30-35%. Right Ventricle: The right ventricle is mildly dilated. Right ventricular systolic function is moderately reduced. Atria: The left atrium is severely dilated. The right atrium is mildly dilated. The interatrial septum grossly appears intact with no obvious evidence for an atrial septal defect. Mitral Valve: The mitral valve is normal in structure and function. MAC. There is no mitral valve stenosis. There is moderate mitral regurgitation. Aortic Valve: There is a mechanical aortic valve. The peak aortic velocity is 2.15 m/sec. The aortic valve mean gradient is 8.5 mmHg. There is trace aortic regurgitation. Tricuspid Valve: The tricuspid valve is normal in structure and function. There is no tricuspid stenosis. There is mild tricuspid regurgitation. The right ventricular systolic pressure is estimated to be at least 50 mmHg based on an estimated right atrial pressure of 8 mm Hg. Pulmonic Valve: The pulmonic valve is not well visualized. There is no pulmonic valvular stenosis. There is trace pulmonic regurgitation. Great Vessels: The aortic root is mildly dilated. The ascending aorta is mildly enlarged. The IVC is dilated (diameter is greater than 2.1 cm) yet it collapses greater than 50% with a sniff. This suggests a right atrial pressure of 8 mm Hg. Pericardium/ Pleura There is no pericardial effusion. There is no pleural effusion. MMode/2D Measurements & Calculations LVIDd: 6.7 cm LVOT diam: 1.8 cm LVIDs: 5.6 cm Ao root diam: 3.7 cm FS: 16.6 % asc Aorta Diam: 4.2 cm IVSd: 1.3 cm LVPWd: 0.99 cm LV jimenez. diameter/BSA (cm/m^2): 3.1 LV sys. diameter/BSA (cm/m^2): 2.6 LA A2 area: 32.1 cm2 RA long axis: 6.0 cm LA A4 area: 27.0 cm2 RA area: 27.7 cm2 LA length (vol): 6.0 cm RA vol: 108.8 ml LA vol: 122.5 ml RA : 50.6 ml/m2 LA vol index: 57.0 ml/m2 IVC diam: 2.0 cm RVD1 (basal): 4.4 cm RVD2 (mid): 3.6 cm TAPSE: 1.4 cm Doppler Measurements & Calculations Ao V2 max: 214.9 cm/sec LVOT Max Jaxon: 87.2 cm/sec Ao V2 mean: 135.0 cm/sec LV V1 max P.0 mmHg Ao max P.5 mmHg LV V1 VTI: 21.9 cm Ao mean P.5 mmHg MANUELA(I,D): 1.2 cm2 Ao V2 VTI: 44.2 cm MANUELA(V,D): 1.0 cm2 sev ratio: 0.50 MANUELA indexed to BSA (cm^2/m^2): 0.58 MV E max jaxon: 102.6 cm/sec TR max jaxon: 326.6 cm/sec MV A max jaxon: 36.7 cm/sec TR max P.7 mmHg MV E/A: 2.8 PA V2 max: 104.2 cm/sec Med Peak E' Jaxon: 3.5 cm/sec PA V2 mean: 70.1 cm/sec E/E' med: 29.1 PA mean P.2 mmHg Lat Peak E' Jaxon: 3.0 cm/sec PA pr(Accel): 35.3 mmHg E/E' lat: 34.6 E/e' average: 31.8 MV dec time: 0.23 sec MR ERO: 0.52 cm2 MR PISA: 8.6 cm2 SV(LVOT): 54.6 ml MR flow rate: 294.1 cm3/sec MR PISA radius: 1.2 cm Electronically signed by: Leandra Bustillo M.D. on Reading Physician:01/19/2024 05:53 AM
== END ==
PROVIDERS: PCP Internal Medicine; Referring Provider Internal Medicine; Visit Provider Internal Medicine
DX: I08.1 Rheumatic disorders of both mitral and tricuspid valves (principal); I77.810 Thoracic aortic ectasia; I77.89 Other specified disorders of arteries and arterioles; Z95.2 Presence of prosthetic heart valve
CPT/HCPCS: 93306

== ENCOUNTER → 2024-07-31 11:57 | Outpatient (CLI) | payer MEDICARE, OTHER, SELFPAY ==
[2024-07-31 13:09] LABS: Hemoglobin A1C% w Est Avg Glu 6.6 % (4.0-6.0)
[2024-07-31 13:14] LABS: BUN Creatinine Ratio 13.6 (6-22); Blood Urea Nitrogen 17 mg/dL (9-20); Carbon Dioxide 25 mmol/L (22-32); Chloride 109 mmol/L (98-107); Estimated Glomerular Filt Rate > 60 mL/min (>60); Glucose 79 mg/dL (80-110); HEMOLYSIS < 15 (0-50); Sodium 141 mmol/L (137-145)
== END ==
LOC: LAB 11:58
PROVIDERS: PCP Internal Medicine; Referring Provider Internal Medicine; Visit Provider Internal Medicine
DX: E11.9 Type 2 diabetes mellitus without complications (principal); I10 Essential (primary) hypertension
CPT/HCPCS: 36415; 80048; 83036

== ENCOUNTER → 2025-02-02 10:32 | Outpatient (CLI) | payer MEDICARE, OTHER, SELFPAY ==
[2025-02-02 11:35] LABS: Alanine Aminotransferase 26 IU/L (<50); Albumin 4.1 g/dL (3.5-5.0); Albumin Globulin Ratio 1.6 (1.0-2.8); Alkaline Phosphatase 116 U/L (38-126); Aspartate Aminotransferase 31 IU/L (17-59); BUN Creatinine Ratio 16.5 (6-22); Bilirubin Total 0.7 mg/dL (0.2-1.3); Blood Urea Nitrogen 19 mg/dL (9-20); Calcium 9.2 mg/dL (8.4-10.2); Carbon Dioxide 23 mmol/L (22-32); Chloride 108 mmol/L (98-107); Estimated Glomerular Filt Rate > 60 mL/min (>60); Globulin 2.5 g/dL (1.7-4.1); Glucose 179 mg/dL (80-110); HEMOLYSIS < 15 (0-50); Potassium 4.8 mmol/L (3.4-5.1); Sodium 140 mmol/L (137-145); Total Protein 6.6 g/dL (6.3-8.2)
[2025-02-02 11:37] LABS: Hemoglobin A1C% w Est Avg Glu 6.1 % (4.0-6.0)
[2025-02-02 11:39] LABS: Creatinine Urine Random 134.12 mg/dL
[2025-02-02 11:44] LABS: Microalbumin Urine Random 8.8 mg/dL (0-1.6)
== END ==
PROVIDERS: PCP Internal Medicine; Referring Provider Internal Medicine; Visit Provider Internal Medicine
DX: E11.9 Type 2 diabetes mellitus without complications (principal); I10 Essential (primary) hypertension; E78.2 Mixed hyperlipidemia; I25.10 Atherosclerotic heart disease of native coronary artery without angina pectoris
CPT/HCPCS: 36415; 80053; 82043; 82570; 83036

== ENCOUNTER → 2025-05-08 11:53 | Outpatient (CLI) | payer MEDICARE, OTHER, SELFPAY ==
[2025-05-08 13:05] LABS: Prothrombin Time 98.5 SECONDS (9.4-12.5)
[2025-05-08 13:24] LABS: INR 9.2 (0.9-1.3)
== END ==
PROVIDERS: PCP Internal Medicine; Referring Provider Internal Medicine; Visit Provider Internal Medicine
DX: Z79.01 Long term (current) use of anticoagulants (principal)
CPT/HCPCS: 36415; 85610

== ENCOUNTER → 2025-05-12 14:54 | Outpatient (CLI) | payer MEDICARE, OTHER, SELFPAY ==
[2025-05-12 15:15] LABS: INR 1.6 (0.9-1.3); Prothrombin Time 17.9 SECONDS (9.4-12.5)
== END ==
PROVIDERS: PCP Internal Medicine; Referring Provider Internal Medicine; Visit Provider Internal Medicine
DX: Z79.01 Long term (current) use of anticoagulants (principal)
CPT/HCPCS: 36415; 85610

== ENCOUNTER → 2025-05-18 12:36 | Outpatient (CLI) | payer MEDICARE, OTHER, SELFPAY ==
[2025-05-18 13:41] LABS: INR 2.8 (0.9-1.3); Prothrombin Time 31.0 SECONDS (9.4-12.5)
== END ==
PROVIDERS: PCP Internal Medicine; Referring Provider Internal Medicine; Visit Provider Internal Medicine
DX: Z79.01 Long term (current) use of anticoagulants (principal)
CPT/HCPCS: 36415; 85610

== ENCOUNTER → 2025-05-25 11:20 | Outpatient (CLI) | payer MEDICARE, OTHER, SELFPAY ==
[2025-05-25 12:05] LABS: Prothrombin Time 49.6 SECONDS (9.4-12.5)
[2025-05-25 12:20] LABS: INR 4.6 (0.9-1.3)
== END ==
PROVIDERS: PCP Internal Medicine; Referring Provider Internal Medicine; Visit Provider Internal Medicine
DX: Z79.01 Long term (current) use of anticoagulants (principal)
CPT/HCPCS: 36415; 85610

== ENCOUNTER → 2025-07-31 11:58 | Outpatient (CLI) | payer MEDICARE, OTHER, SELFPAY ==
[2025-07-31 13:08] LABS: Add Manual Diff / Slide Review NO; Hematocrit 34.9 % (41-53); Hemoglobin 11.6 g/dL (13.5-17.5); Lymphocytes Absolute Auto 1200 /uL (1100-4500); Mean Corpuscular HGB Conc 33.2 % (30-36); Mean Corpuscular Hemoglobin 30.2 PG (26-34); Mean Corpuscular Volume 90.8 fL (80-100); Platelet Count 186 X10^3/uL (150-400)
[2025-07-31 13:20] LABS: Hemoglobin A1C% w Est Avg Glu 6.6 % (4.0-6.0)
[2025-07-31 13:28] LABS: Alanine Aminotransferase 24 IU/L (<50); Albumin 4.6 g/dL (3.5-5.0); Albumin Globulin Ratio 1.6 (1.0-2.8); Alkaline Phosphatase 96 U/L (38-126); Blood Urea Nitrogen 22 mg/dL (9-20); Calcium 9.5 mg/dL (8.4-10.2); Carbon Dioxide 21 mmol/L (22-32); Chloride 108 mmol/L (98-107); Cholesterol 141 mg/dL (140-199); Estimated Glomerular Filt Rate 60 mL/min (>60); Globulin 2.8 g/dL (1.7-4.1); Glucose 57 mg/dL (70-99); HDL Cholesterol 39 mg/dL (40-60); HEMOLYSIS < 15 (0-50); Potassium 4.2 mmol/L (3.4-5.1); Sodium 141 mmol/L (137-145); Total Protein 7.4 g/dL (6.3-8.2); Triglycerides 117 mg/dL (35-150)
== END ==
PROVIDERS: PCP Internal Medicine; Referring Provider Internal Medicine; Visit Provider Internal Medicine
DX: I10 Essential (primary) hypertension (principal); E11.9 Type 2 diabetes mellitus without complications; E78.2 Mixed hyperlipidemia; Z79.01 Long term (current) use of anticoagulants; D64.9 Anemia, unspecified
CPT/HCPCS: 36415; 80053; 80061; 83036; 85025